=== PATIENT | female | born 1980 | race Caucasian/White ===

== ENCOUNTER 2019-03-01 14:22 | Outpatient (CLI) | payer OTHER | END 2019-03-01 23:59 | disposition home or self-care (01) | LOC: RAD 14:22 | PROVIDERS: ATTEND Family Medicine | DX: M53.3 Sacrococcygeal disorders, not elsewhere classified (principal); M16.9 Osteoarthritis of hip, unspecified; F17.200 Nicotine dependence, unspecified, uncomplicated; Z98.1 Arthrodesis status; Z97.5 Presence of (intrauterine) contraceptive device | CPT/HCPCS: 72110; 72202 ==

== ENCOUNTER 2019-09-13 12:45 | Inpatient (IN) | payer OTHER ==
[2019-09-09 15:05] LABS: CLARITY,URINE SLIGHTLY CLOUDY (Clear); COLOR,URINE YELLOW (Yellow); GLUCOSE, URINE 100 mg/dl (Neg); KETONES,URINE TRACE mg/dl (Neg); LEUKOCYTE ESTERASE ,URINE NEGATIVE (Neg); NITRITES, URINE NEGATIVE (Neg); OCCULT BLOOD,URINE TRACE-INTACT (Neg); PH,URINE 6.5 (4.8-8.0); PROTEIN,URINE TRACE mg/dl (Neg); UA COLLECTION TYPE CLN CATCH MIDSTREAM
[2019-09-09 15:07] LABS: BASOPHILS # (AUTO) 0.1 X10'3 (0-0.2); BASOPHILS % (AUTO) 0.6 % (0-1); EOSINOPHILS % (AUTO) 0.3 % (0-6); LYMPHOCYTES # (AUTO) 1.3 X10'3 (1.1-4.8); LYMPHOCYTES % (AUTO) 13.7 % (21-51); MEAN CORPUSCULAR HEMOGLOBIN 31.3 PG (27.0-31.0); MEAN CORPUSCULAR HGB CONC 33.7 g/dL (33.0-36.5); MEAN CORPUSCULAR VOLUME 92.7 FL (78-98); MEAN PLATELET VOLUME 9.1 FL (7.4-10.4); MONOCYTES # (AUTO) 0.6 X10'3 (0-0.9); MONOCYTES % (AUTO) 6.4 % (2-12); NEUTROPHILS # (AUTO) 7.4 X10'3 (1.8-7.7); PRE OP HEMATOCRIT 38.9 % (35.0-45.0); PRE OP HEMOGLOBIN 13.1 g/dL (12.0-16.0); PRE OP PLATELET COUNT 343 X10'3 (140-440); RED CELL DISTRIBUTION WIDTH 13.7 % (11.5-14.5)
[2019-09-09 15:14] LABS: BACTERIA,URINE 1+ /HPF (Neg); WBC,URINE 0-4 /HPF (0-4)
[2019-09-09 15:15] LABS: MUCUS STRANDS MANY /LPF (Neg); SQUAMOUS EPITHELIAL CELL,UR MODERATE /LPF (FEW)
[2019-09-09 15:15] LABS: PRE OP INR 1.2 INR; PRE OP PROTIME 12.3 SECONDS (9.0-12.0)
[2019-09-09 15:18] LABS: ALBUMIN 4.1 G/DL (3.4-5.0); ALBUMIN/GLOBULIN RATIO 1.2 (1.1-1.5); ALKALINE PHOSPHATASE 53 IU/L (46-116); BLOOD UREA NITROGEN 11 MG/DL (7-18); BUN/CREATININE RATIO 12.5 (6.6-38.0); CALCIUM 8.9 MG/DL (8.5-10.1); CHLORIDE 107 MMOL/L (99-107); CREATININE 0.88 MG/DL (0.40-0.90); PRE OP ALT 20 U/L (30-65); PRE OP ANION GAP 7 (8-16); PRE OP AST 11 U/L (10-37); PRE OP BILIRUB, TOTAL 0.4 MG/DL (0.0-1.0); PRE OP GLUCOSE 118 MG/DL (70-104); PRE OP SODIUM 144 MMOL/L (135-145); TOTAL CARBON DIOXIDE 30.4 MMOL/L (24-32); TOTAL PROTEIN 7.6 G/DL (6.4-8.2); eGFR 71 ML/MIN
[2019-09-09 15:22] LABS: PRE OP POTASSIUM 3.2 MMOL/L (3.4-5.1)
[~2019-09-13] VITALS: Ht 162.6 cm; Wt 90.7 kg
[2019-09-13] VITALS (21 sets, daily range): BP systolic 105–158; BP diastolic 62–89
[~2019-09-13 12:45] MED LIST: BUPR300T86 PO; FLUT16SP2 BOTHNARES; [UNRECOGNIZED DRUG - REMARK] PO; cefazolin/dext.iso 2gm/50ml 50 ML IV ONE; famotidine 20mg tablet PO ONE; ringers solution, lacted 1,000 ML IV SCH
[2019-09-13] MEDS ORDERED: ceFAZolin 1000mg inj ONE (14:50)
[2019-09-13] MEDS ORDERED: dexmedetomidine 200mcg/2ml inj. IV ONE ×2 (14:59→15:14)
[2019-09-13] MEDS ORDERED: ringers solution, lacted 1,000 ML IV SCH (15:01)
[2019-09-13] MEDS ORDERED: HYDROmorphone inj. 0.5 MG/0.5 ML DISP.SYRIN IV PRN ×2 (15:05)
[2019-09-13] MEDS ORDERED: ondansetron/PF 4mg/2ml inj IV PRN ×2 (15:05→17:30)
[2019-09-13] MEDS ORDERED: fentaNYL/PF 50MCG/1 ML 2ML syringe IV PRN (15:05)
[2019-09-13] MEDS ORDERED: labetalol 20mg/4ml (5mg/ml) syringe IV PRN (15:05)
[2019-09-13] MEDS ORDERED: hydrALAZINE 20mg/ml inj. IV PRN (15:05)
[2019-09-13 15:12] LABS: PRE OP PARTIAL THROMB. TIME 27 SECONDS (22-32)
[2019-09-13] MEDS ORDERED: neostigmine methylsulfate 1 MG/ML 10ml vial ONE (15:14)
[2019-09-13] MEDS ORDERED: glycopyrrolate 0.2mg/ml inj ONE ×2 (15:14→17:12)
[2019-09-13] MEDS ORDERED: sevoflurane 250ml liquid IH ONE (15:14)
[2019-09-13 15:15] LABS: ALANINE AMINOTRANSFERASE 21 U/L (12-78); ALBUMIN 4.4 G/DL (3.4-5.0); ALBUMIN/GLOBULIN RATIO 1.2 (1.1-1.5); ALKALINE PHOSPHATASE 50 IU/L (46-116); ANION GAP 6 (8-16); ASPARTATE AMINO TRANSFERASE 10 U/L (10-37); BILIRUBIN,TOTAL 0.4 MG/DL (0.1-1.0); BLOOD UREA NITROGEN 7 MG/DL (7-18); BUN/CREATININE RATIO 8.5 (6.6-38.0); CALCIUM 9.3 MG/DL (8.5-10.1); CHLORIDE 105 MMOL/L (99-107); CREATININE 0.82 MG/DL (0.40-0.90); GLUCOSE 87 MG/DL (70-104); POTASSIUM 3.9 MMOL/L (3.5-5.1); SODIUM 141 MMOL/L (135-145); TOTAL CARBON DIOXIDE 30.5 MMOL/L (24-32); eGFR 77 ML/MIN
[2019-09-13] MEDS ORDERED: MIDAZolam 5mg/ml 2ml vial ONE (15:21)
[2019-09-13] MEDS ORDERED: fentaNYL /PF 50mcg/ml 5ml ampule ONE (15:23)
[2019-09-13] MEDS ORDERED: ondansetron/PF 4mg/2ml inj ONE (15:47)
[2019-09-13] MEDS ORDERED: rocuronium 10mg/ml inj IV ONE (15:48)
[2019-09-13] MEDS ORDERED: propofol inj 20 ML IV ONE (15:48)
[2019-09-13] MEDS ORDERED: LIDOcaine 2% (20mg/ml) 5ml vial ONE (15:48)
[2019-09-13] MEDS ORDERED: BUPIVAcaine/PF 2.5mg/ml (0.25%) 10ml vial ONE (17:15)
--- NOTE | 2019-09-13 17:29 | NUR ---
Received from OR via BED, accompanied by Anesthesiologist DR WYNN and report given by Anesthesiologist. PT DROWSY, LEFT HIP/LOWER BACK W/ISLAND DRSG COVERING INCISION CDI, MIRAMONTES CATHETER TO GRAVITY DRAINAGE W/YELLOW URINE IN TUBING. Addendum: 09/13/19 at 1812 by Katie Wen RN Amended: Links added.
[2019-09-13] MEDS ORDERED: diphenhydrAMINE 50 mg/ml inj IV PRN (17:30)
[2019-09-13] MEDS ORDERED: CADD PCA waste documentation MC PRN (17:30)
[2019-09-13] MEDS ORDERED: bisacodyl 10mg suppository rectal RC PRN (17:30)
[2019-09-13] MEDS ORDERED: cyclobenzaprine 10mg tablet PO PRN (17:30)
[2019-09-13] MEDS ORDERED: acetaminophen 325mg tablet PO PRN (17:30)
[2019-09-13] MEDS ORDERED: HYDROcodone/acetaminophen 10/325mg tab PO PRN ×2 (17:30)
[2019-09-13] MEDS ORDERED: mag hydrox/Alum hydrox/simeth 30ml oral suspension PO PRN (17:30)
[2019-09-13] MEDS ORDERED: temazepam 15mg capsule PO PRN (17:30)
[2019-09-13] MEDS ORDERED: naloxone 0.4 mg/ml inj IV PRN (17:30)
[2019-09-13] MEDS ORDERED: magnesium hydroxide 30ml (MOM) UD suspension PO PRN (17:30)
[2019-09-13] MEDS: fentaNYL/PF 50MCG/1 ML 2ML syringe IV PRN ×2 (17:39→18:00)
[2019-09-13] MEDS: HYDROmorphone/NS 1 mg/ml CADD 50 ML IV SCH ×3 (18:40→23:00)
--- NOTE | 2019-09-13 19:19 | NUR ---
Report called to receiving nurse. Transferred via BED, NO Belongings, RECEIVING RN AT BEDSIDE TO RECEIVE PT, BLL, CALL LIGHT GIVEN, SIDE RAILS UP X 2, FAMILY AT BEDSIDE. Special Issues communicated to receiving nurse. YES. Addendum: 09/13/19 at 1926 by Katie Wen RN Amended: Links added.
[2019-09-13] MEDS: buPROPion SR 150mg tablet PO SCH (20:00)
[2019-09-13] MEDS: docusate sod 100mg capsule PO SCH (20:00)
[2019-09-13] MEDS: normal saline 1000ml 1,000 ML IV SCH (20:07)
[2019-09-13] MEDS: ceFAZolin 1GM/D5W- ADD-VANTAGE 50 ML IV SCH (23:26)
[2019-09-13] MEDS: vancomycin/NS 1 GM ADD-VANTAGE 250 ML IV SCH (23:26)
[2019-09-14] MEDS: HYDROmorphone/NS 1 mg/ml CADD 50 ML IV SCH ×3 (01:00→05:00)
[2019-09-14 02:00] VITALS: BP 103/62
[2019-09-14] MEDS: normal saline 1000ml 1,000 ML IV SCH ×2 (03:29→07:16)
--- NOTE | 2019-09-14 06:01 | NUR ---
report rec'd from maria elena Wilson. in [facility].
[2019-09-14 06:02] LABS: ANION GAP 5 (8-16); CHLORIDE 108 MMOL/L (99-107); POTASSIUM 4.2 MMOL/L (3.5-5.1); SODIUM 141 MMOL/L (135-145); TOTAL CARBON DIOXIDE 27.8 MMOL/L (24-32)
--- NOTE | 2019-09-14 06:08 | NUR ---
report given to maria elena HENNING.
[2019-09-14 06:10] VITALS: BP 103/58
[2019-09-14 06:14] LABS: BASOPHILS % (AUTO) 0.3 % (0-1); EOSINOPHILS % (AUTO) 0.1 % (0-6); HEMATOCRIT 34.1 % (35.0-45.0); HEMOGLOBIN 11.7 g/dl (12.0-16.0); LYMPHOCYTES % (AUTO) 10.4 % (21-51); MEAN CORPUSCULAR HEMOGLOBIN 31.7 PG (27.0-31.0); MEAN CORPUSCULAR HGB CONC 34.3 g/dL (33.0-36.5); MEAN CORPUSCULAR VOLUME 92.4 FL (78-98); MEAN PLATELET VOLUME 9.1 FL (7.4-10.4); MONOCYTES # (AUTO) 0.8 X10'3 (0-0.9); MONOCYTES % (AUTO) 8.1 % (2-12); NEUTROPHILS % (AUTO) 81.1 % (42-75); PLATELET COUNT 256 X10'3 (140-440); RED BLOOD COUNT 3.69 X10'6 (4.20-5.60); RED CELL DISTRIBUTION WIDTH 14.2 % (11.5-14.5); WHITE BLOOD COUNT 9.8 X10'3 (4.5-11.0)
--- NOTE | 2019-09-14 06:29 | NUR ---
Patient in room ORTHO 4009. I have received report from Jasmyne MACHADO and had the opportunity to ask questions and assume patient care.
[2019-09-14] MEDS ORDERED: HYDR-4353 PO (06:55)
[2019-09-14] MEDS: vancomycin/NS 1 GM ADD-VANTAGE 250 ML IV SCH (07:17)
[2019-09-14] MEDS: buPROPion SR 150mg tablet PO SCH (08:00)
[2019-09-14] MEDS: ceFAZolin 1GM/D5W- ADD-VANTAGE 50 ML IV SCH (08:00)
[2019-09-14] MEDS ORDERED: fluticasone nasal spray 16GM bottle NS SCH (08:00)
--- NOTE | 2019-09-14 08:30 | NUR ---
I spoke to Rocio Han because patient IV stopped working during vanco dose this am, She said it was okay not to give anymore antibiotics since patient had them in the OR.
[2019-09-14] MEDS: docusate sod 100mg capsule PO SCH (09:01)
[2019-09-14 10:00] VITALS: BP 111/64
--- NOTE | 2019-09-14 11:05 | NUR ---
Patient taught discharge instructions for Dr. Mario's incisional care. Patient taken out to private vehicle in .
== END 2019-09-14 11:05 | disposition home or self-care (01) | DRG 460 ==
LOC: UNDOADMIN 13:05 → PAS IN 13:05 → EDSTATUS 15:00 → PAS IN 17:29 → ORTHO 4S 19:20 → UNDODISIN 09-14 11:05
PROVIDERS: ADMIT Orthopaedic Surgery Orthopaedic Surgery of the Spine; ATTEND Orthopaedic Surgery Orthopaedic Surgery of the Spine
PROC: 0SG807Z Fusion of Left Sacroiliac Joint with Autologous Tissue Substitute, Open Approach (ICD-10-PCS; principal; 2019-09-13 15:14)
DX: M47.898 Other spondylosis, sacral and sacrococcygeal region (principal); D62 Acute posthemorrhagic anemia; G89.29 Other chronic pain; F32.9 Major depressive disorder, single episode, unspecified; K21.9 Gastro-esophageal reflux disease without esophagitis
CPT/HCPCS: Z7506; Z7508; 36415; 71045; 72170; 76000; 80051; 80053; 81001; 82948; 85025; 85610; 85730; 86870; 86885; 86900; 86901; 86902; 86905; 86922; 87081; 93005; 97116; 97161; 97530; A4618; A7000; C1713; C1758; G0378; J0690; J1170; J2001; J2250; J2405; J2704; J2710; J3010; J3370; J3490; J7030; J7120

== ENCOUNTER → 2020-01-27 | Outpatient (CLI) | payer BC, OTHER ==
[~2020-01-27] MED LIST changes: +HYDR-4353 PO; -cefazolin/dext.iso 2gm/50ml 50 ML IV ONE; -famotidine 20mg tablet PO ONE; -ringers solution, lacted 1,000 ML IV SCH
[2020-01-27 13:54] LABS: CLARITY,URINE SLIGHTLY CLOUDY (Clear); COLOR,URINE YELLOW (Yellow); GLUCOSE, URINE NEGATIVE (Neg); KETONES,URINE NEGATIVE (Neg); LEUKOCYTE ESTERASE ,URINE NEGATIVE (Neg); NITRITES, URINE NEGATIVE (Neg); OCCULT BLOOD,URINE SMALL (Neg); PH,URINE 5.5 (4.8-8.0); PROTEIN,URINE NEGATIVE (Neg); UROBILINOGEN,URINE 0.2 E.U/dL (0.2-1.0)
[2020-01-27 13:55] LABS: UA COLLECTION TYPE CLN CATCH MIDSTREAM
[2020-01-27 13:56] LABS: BASOPHILS # (AUTO) 0.1 X10'3 (0-0.2); BASOPHILS % (AUTO) 0.6 % (0-1); EOSINOPHILS # (AUTO) 0.1 X10'3 (0-0.9); EOSINOPHILS % (AUTO) 0.9 % (0-6); HEMATOCRIT 39.6 % (35.0-45.0); HEMOGLOBIN 13.1 g/dl (12.0-16.0); LYMPHOCYTES # (AUTO) 1.8 X10'3 (1.1-4.8); LYMPHOCYTES % (AUTO) 19.2 % (21-51); MEAN CORPUSCULAR VOLUME 93.8 FL (78-98); MEAN PLATELET VOLUME 9.1 FL (7.4-10.4); MONOCYTES # (AUTO) 0.6 X10'3 (0-0.9); MONOCYTES % (AUTO) 6.5 % (2-12); NEUTROPHILS # (AUTO) 6.7 X10'3 (1.8-7.7); NEUTROPHILS % (AUTO) 72.8 % (42-75); PLATELET COUNT 337 X10'3 (140-440); RED BLOOD COUNT 4.22 X10'6 (4.20-5.60); RED CELL DISTRIBUTION WIDTH 14.1 % (11.5-14.5); WHITE BLOOD COUNT 9.1 X10'3 (4.5-11.0)
[2020-01-27 14:09] LABS: BACTERIA,URINE NONE SEEN /HPF (Neg); MUCUS STRANDS NONE SEEN /LPF (Neg); RBC,URINE NONE SEEN /HPF (0-2); SQUAMOUS EPITHELIAL CELL,UR FEW /LPF (FEW); WBC,URINE NONE SEEN /HPF (0-4)
[2020-01-27 14:12] LABS: RHEUM FACTOR QUAL REFLEX TITER NEGATIVE (Neg)
[2020-01-27 14:14] LABS: IONIZED CALCIUM SERUM 1.36 MMOL/L (1.03-1.32)
[2020-01-27 14:45] LABS: ALANINE AMINOTRANSFERASE 31 U/L (12-78); ALKALINE PHOSPHATASE 51 IU/L (46-116); ANION GAP 10 (8-16); ASPARTATE AMINO TRANSFERASE 20 U/L (10-37); BILIRUBIN,TOTAL 0.4 MG/DL (0.1-1.0); BLOOD UREA NITROGEN 14 MG/DL (7-18); BUN/CREATININE RATIO 16.5 (6.6-38.0); CALCIUM 9.2 MG/DL (8.5-10.1); CHLORIDE 100 MMOL/L (99-107); CHOL/HDL RATIO 2.6 (0.00-4.99); CHOLESTEROL 180 MG/DL (0-200); CREATININE 0.85 MG/DL (0.40-0.90); GLUCOSE 77 MG/DL (70-104); HDL CHOLESTEROL 70 MG/DL (35-60); LDL CHOLESTEROL 95 MG/DL (50-100); POTASSIUM 3.4 MMOL/L (3.5-5.1); SODIUM 136 MMOL/L (135-145); TOTAL CARBON DIOXIDE 26.5 MMOL/L (24-32); TRIGLYCERIDES 46 MG/DL (20-135); eGFR 74 ML/MIN
[2020-01-27 14:52] LABS: C-REACTIVE PROTEIN < 0.05 MG/DL (0.0-0.5)
== END | disposition home or self-care (01) ==
LOC: LAB 12:33
PROVIDERS: ATTEND Family Medicine
DX: M13.0 Polyarthritis, unspecified (principal)
CPT/HCPCS: 36415; 80053; 80061; 81001; 82306; 82330; 83970; 84439; 84443; 84550; 85025; 85651; 86038; 86140; 86430

== ENCOUNTER 2020-03-29 05:35 | Inpatient (IN) | payer BC ==
[2020-03-21 13:59] LABS: BASOPHILS # (AUTO) 0.1 X10'3 (0-0.2); BASOPHILS % (AUTO) 0.9 % (0-1); EOSINOPHILS # (AUTO) 0.1 X10'3 (0-0.9); EOSINOPHILS % (AUTO) 1.4 % (0-6); LYMPHOCYTES # (AUTO) 2.1 X10'3 (1.1-4.8); MEAN CORPUSCULAR HEMOGLOBIN 30.4 PG (27.0-31.0); MEAN CORPUSCULAR HGB CONC 32.6 g/dL (33.0-36.5); MEAN CORPUSCULAR VOLUME 93.4 FL (78-98); MEAN PLATELET VOLUME 8.4 FL (7.4-10.4); MONOCYTES # (AUTO) 0.5 X10'3 (0-0.9); MONOCYTES % (AUTO) 6.5 % (2-12); NEUTROPHILS # (AUTO) 5.2 X10'3 (1.8-7.7); NEUTROPHILS % (AUTO) 65.2 % (42-75); PRE OP HEMATOCRIT 36.7 % (35.0-45.0); PRE OP PLATELET COUNT 343 X10'3 (140-440); RED BLOOD COUNT 3.93 X10'6 (4.20-5.60); RED CELL DISTRIBUTION WIDTH 13.8 % (11.5-14.5)
[2020-03-21 14:12] LABS: PRE OP INR 1.1 INR; PRE OP PROTIME 11.2 SECONDS (9.0-12.0)
[2020-03-21 14:16] LABS: HCG SERUM QL NEGATIVE
[2020-03-21 14:18] LABS: ALBUMIN/GLOBULIN RATIO 1.1 (1.1-1.5); ALKALINE PHOSPHATASE 52 IU/L (46-116); BLOOD UREA NITROGEN 11 MG/DL (7-18); BUN/CREATININE RATIO 16.2 (6.6-38.0); CALCIUM 9.1 MG/DL (8.5-10.1); CHLORIDE 105 MMOL/L (99-107); CREATININE 0.68 MG/DL (0.40-0.90); PRE OP ALT 22 U/L (30-65); PRE OP ANION GAP 6 (8-16); PRE OP AST 14 U/L (10-37); PRE OP BILIRUB, TOTAL 0.4 MG/DL (0.0-1.0); PRE OP GLUCOSE 83 MG/DL (70-104); PRE OP POTASSIUM 3.4 MMOL/L (3.4-5.1); PRE OP SODIUM 139 MMOL/L (135-145); TOTAL CARBON DIOXIDE 27.9 MMOL/L (24-32); TOTAL PROTEIN 7.5 G/DL (6.4-8.2); eGFR > 90 ML/MIN
[2020-03-29] VITALS (9 sets, daily range): BP systolic 97–128; BP diastolic 48–77
[~2020-03-29] VITALS: Ht 165.1 cm; Wt 98.4 kg
[~2020-03-29 05:35] MED LIST changes: +CELE-193 PO; -HYDR-4353 PO; +cefazolin/dext.iso 2gm/50ml 50 ML IV ONE; +famotidine 20mg tablet PO ONE; +ringers solution, lacted 1,000 ML IV SCH
[2020-03-29] MEDS ORDERED: fentaNYL /PF 50mcg/ml 5ml ampule ONE (07:15)
[2020-03-29] MEDS ORDERED: midazolam 2 mg/2 ml injection ONE (07:15)
[2020-03-29] MEDS ORDERED: propofol inj 20 ML IV ONE (07:19)
[2020-03-29] MEDS ORDERED: LIDOcaine 2% (20mg/ml) 5ml vial ONE (07:19)
[2020-03-29] MEDS ORDERED: rocuronium 10mg/ml inj IV ONE ×2 (07:19→07:25)
[2020-03-29] MEDS ORDERED: sevoflurane 250ml liquid IH ONE (07:25)
[2020-03-29] MEDS ORDERED: ringers solution, lacted 1,000 ML IV SCH (07:28)
[2020-03-29] MEDS ORDERED: meperidine/PF 25mg/ml syringe IV PRN ×2 (07:30)
[2020-03-29] MEDS ORDERED: morphine 4 MG/ML inj SYRINge IV PRN (07:30)
[2020-03-29] MEDS ORDERED: ondansetron/PF 4mg/2ml inj IV PRN (07:30)
[2020-03-29] MEDS ORDERED: proCHLORperazine 10 MG/2 ml inj IV PRN (07:30)
[2020-03-29] MEDS ORDERED: morphine 2 MG/ML inj. syringe IV PRN (07:30)
[2020-03-29] MEDS ORDERED: glycopyrrolate 0.2mg/ml inj ONE (08:24)
[2020-03-29] MEDS ORDERED: dexamethasone sod phosphate 4mg/ml inj. ONE (08:24)
[2020-03-29] MEDS ORDERED: neostigmine methylsulfate 1 MG/ML 10ml vial ONE (08:24)
[2020-03-29] MEDS ORDERED: ondansetron/PF 4mg/2ml inj ONE (08:24)
[2020-03-29] MEDS ORDERED: fentaNYL/PF 50MCG/1 ML 2ML syringe ONE (08:25)
[2020-03-29] MEDS ORDERED: BUPIVAcaine/PF 2.5 mg/ml (0.25%) 30ml vial ONE (09:11)
[2020-03-29] MEDS ORDERED: meperidine/PF 25mg/ml syringe ONE (09:28)
--- NOTE | 2020-03-29 09:38 | NUR ---
Received from OR via , accompanied by Anesthesiologist DR DUGAN and report given by Anesthesiolgist. AWAKENS TO VOICE. VITALS STABLE. DRESSING DI BERYL PAIN.
--- NOTE | 2020-03-29 10:22 | NUR ---
PT IS POST OP SACROILIAC JOINT FUSION TODAY . IS UNABLE TO WEIGHT MAHESH R ON RT LOWER EXTREMITY. REQUESTS FRONT WHEEL WALKER FOR AMBULATION.
[2020-03-29] MEDS: meperidine/PF 25mg/ml syringe IV PRN ×2 (10:35→10:43)
[2020-03-29] MEDS ORDERED: HYDROcodone/acetaminophen 10/325mg tab PO ONE (10:40)
--- NOTE | 2020-03-29 11:08 | NUR ---
AWAKE AND ORIENTED. VITALS STABLE. DRESSING DI. STATES PAIN IMPROVING. HOME WITH HER FATHER AT THIS TIME.
== END 2020-03-29 11:08 | disposition home or self-care (01) | DRG 460 ==
LOC: PAS IN 05:35 → EDSTATUS 11:45
PROVIDERS: ADMIT Orthopaedic Surgery; ATTEND Orthopaedic Surgery
PROC: 0SG704Z Fusion of Right Sacroiliac Joint with Internal Fixation Device, Open Approach (ICD-10-PCS; principal; 2020-03-29 07:25)
DX: M46.1 Sacroiliitis, not elsewhere classified (principal); Z79.899 Other long term (current) drug therapy; Z20.828 Contact with and (suspected) exposure to other viral communicable diseases
CPT/HCPCS: 36415; 72100; 76000; 80053; 82948; 84703; 85025; 85610; 85730; 87081; 87635; A4215; A4618; C1713; C1758; J1100; J2001; J2175; J2250; J2405; J2704; J2710; J3010; J3490; J7120

== ENCOUNTER → 2020-04-25 | Outpatient (CLI) | payer BC ==
[~2020-04-25] MED LIST changes: -cefazolin/dext.iso 2gm/50ml 50 ML IV ONE; -famotidine 20mg tablet PO ONE; -ringers solution, lacted 1,000 ML IV SCH
== END | disposition home or self-care (01) ==
LOC: RAD 13:51
PROVIDERS: ATTEND Family Medicine
DX: M53.3 Sacrococcygeal disorders, not elsewhere classified (principal); W19.XXXD Unspecified fall, subsequent encounter
CPT/HCPCS: 72202

== ENCOUNTER 2020-05-10 08:50 | Outpatient (CLI) | payer BC | END 2020-05-10 23:59 | disposition home or self-care (01) | LOC: 64 CT 08:50 | PROVIDERS: ATTEND Orthopaedic Surgery | DX: M47.26 Other spondylosis with radiculopathy, lumbar region (principal); M53.3 Sacrococcygeal disorders, not elsewhere classified; M54.5 Low back pain; M43.26 Fusion of spine, lumbar region; Z72.0 Tobacco use | CPT/HCPCS: 72131; 72192 ==

== ENCOUNTER 2020-12-27 10:01 | Outpatient (CLI) | payer BC ==
[2020-12-27 11:03] LABS: BASOPHILS # (AUTO) 0.1 X10'3 (0-0.2); BASOPHILS % (AUTO) 1.3 % (0-1); EOSINOPHILS # (AUTO) 0.1 X10'3 (0-0.9); EOSINOPHILS % (AUTO) 1.8 % (0-6); HEMATOCRIT 34.8 % (35.0-45.0); HEMOGLOBIN 11.5 g/dl (12.0-16.0); LYMPHOCYTES # (AUTO) 1.1 X10'3 (1.1-4.8); LYMPHOCYTES % (AUTO) 20.8 % (21-51); MEAN CORPUSCULAR HGB CONC 33.1 g/dL (33.0-36.5); MEAN CORPUSCULAR VOLUME 93.7 FL (78-98); MEAN PLATELET VOLUME 8.7 FL (7.4-10.4); MONOCYTES # (AUTO) 0.4 X10'3 (0-0.9); MONOCYTES % (AUTO) 6.9 % (2-12); NEUTROPHILS # (AUTO) 3.7 X10'3 (1.8-7.7); NEUTROPHILS % (AUTO) 69.2 % (42-75); PLATELET COUNT 348 X10'3 (140-440); RED BLOOD COUNT 3.72 X10'6 (4.20-5.60); RED CELL DISTRIBUTION WIDTH 14.7 % (11.5-14.5); WHITE BLOOD COUNT 5.3 X10'3 (4.5-11.0)
[2020-12-27 11:18] LABS: RHEUM FACTOR QUAL REFLEX TITER NEGATIVE (Neg)
[2020-12-27 11:27] LABS: IRON 17 UG/DL (49-151)
[2020-12-27 11:31] LABS: ALANINE AMINOTRANSFERASE 20 U/L (12-78); ALBUMIN 3.6 G/DL (3.4-5.0); ALBUMIN/GLOBULIN RATIO 1.1 (1.1-1.5); ALKALINE PHOSPHATASE 43 IU/L (46-116); ANION GAP 7 (8-16); ASPARTATE AMINO TRANSFERASE 12 U/L (10-37); BILIRUBIN,TOTAL 0.2 MG/DL (0.1-1.0); BLOOD UREA NITROGEN 14 MG/DL (7-18); BUN/CREATININE RATIO 19.2 (6.6-38.0); CALCIUM 8.4 MG/DL (8.5-10.1); CHLORIDE 107 MMOL/L (99-107); CHOL/HDL RATIO 2.4 (0.00-4.99); CHOLESTEROL 160 MG/DL (0-200); CREATININE 0.73 MG/DL (0.40-0.90); GLUCOSE 87 MG/DL (70-104); HDL CHOLESTEROL 66 MG/DL (35-60); LDL CHOLESTEROL 78 MG/DL (50-100); POTASSIUM 3.5 MMOL/L (3.5-5.1); SODIUM 140 MMOL/L (135-145); TOTAL CARBON DIOXIDE 26.4 MMOL/L (24-32); TRIGLYCERIDES 25 MG/DL (20-135); eGFR 88 ML/MIN
[2020-12-27 11:50] LABS: CREATINE KINASE 153 U/L (26-192)
[2020-12-27 11:52] LABS: C-REACTIVE PROTEIN 0.08 MG/DL (0.0-0.5)
[2020-12-27 13:10] LABS: % IRON SATURATION 5 % (11-46); TOTAL IRON BINDING CAPACITY 352 UG/DL (259-388)
[2020-12-28 12:30] LABS: ANTINUCLEAR ANTIBODIES Negative (Negative); IMMUNOGLOBULIN A, QN, SERUM 191 mg/dL (87-352); IMMUNOGLOBULIN G, QN, SERUM 1182 mg/dL (586-1602)
== END 2020-12-27 23:59 | disposition home or self-care (01) ==
LOC: LAB 10:01
PROVIDERS: ATTEND Family Medicine
DX: M13.0 Polyarthritis, unspecified (principal); G57.93 Unspecified mononeuropathy of bilateral lower limbs; M25.50 Pain in unspecified joint
CPT/HCPCS: 36415; 80053; 80061; 82306; 82330; 82550; 82607; 82746; 82784; 83540; 83550; 83970; 84439; 84443; 85025; 85651; 86038; 86140; 86200; 86430; 86803

== ENCOUNTER → 2021-11-14 | Outpatient (CLI) | payer BC ==
[~2021-11-14] MED LIST changes: +GADOTERATE MEGLUMINE 10 MMOL/20 ML SYRINGE IV ONE
== END | disposition home or self-care (01) ==
LOC: RAD 11:57
PROVIDERS: ATTEND Family Medicine
DX: M48.061 Spinal stenosis, lumbar region without neurogenic claudication (principal); M43.28 Fusion of spine, sacral and sacrococcygeal region
CPT/HCPCS: 72158; A9575

== ENCOUNTER 2022-01-13 12:51 | Outpatient (CLI) | payer BC ==
[~2022-01-13 12:51] MED LIST changes: -GADOTERATE MEGLUMINE 10 MMOL/20 ML SYRINGE IV ONE
== END 2022-01-13 23:59 | disposition home or self-care (01) ==
LOC: RAD 12:51
PROVIDERS: ATTEND Physician Assistant
DX: M25.552 Pain in left hip (principal); Z98.890 Other specified postprocedural states
CPT/HCPCS: 73502

== ENCOUNTER 2022-07-02 09:32 | Outpatient (CLI) | payer BC ==
[2022-07-03] MEDS ORDERED: GADOTERATE MEGLUMINE 7.5 MMOL/15 ML VIAL IV ONE (10:29)
== END 2022-07-02 23:59 | disposition home or self-care (01) ==
LOC: RAD 09:32
PROVIDERS: ATTEND Family Medicine
DX: M48.061 Spinal stenosis, lumbar region without neurogenic claudication (principal); M51.26 Other intervertebral disc displacement, lumbar region; M47.816 Spondylosis without myelopathy or radiculopathy, lumbar region; M89.38 Hypertrophy of bone, other site; M53.86 Other specified dorsopathies, lumbar region; M62.58 Muscle wasting and atrophy, not elsewhere classified, other site; Z98.1 Arthrodesis status
CPT/HCPCS: 72158; A9575

== ENCOUNTER 2022-12-22 08:25 | Outpatient (CLI) | payer BC | END 2022-12-22 23:59 | disposition home or self-care (01) | LOC: RAD 08:25 | PROVIDERS: ATTEND Family Medicine | DX: M25.552 Pain in left hip (principal) | CPT/HCPCS: 73721 ==

== ENCOUNTER 2023-04-30 08:45 | Outpatient (CLI) | payer BC | END 2023-04-30 23:59 | disposition home or self-care (01) | LOC: RAD 08:45 | PROVIDERS: ATTEND Family Medicine | DX: S83.242A Other tear of medial meniscus, current injury, left knee, initial encounter (principal); S83.412A Sprain of medial collateral ligament of left knee, initial encounter; M94.262 Chondromalacia, left knee; M25.562 Pain in left knee; X58.XXXA Exposure to other specified factors, initial encounter; Y93.89 Activity, other specified; Y92.89 Other specified places as the place of occurrence of the external cause; Y99.8 Other external cause status | CPT/HCPCS: 73565; 73721 ==